=== PATIENT | female | born 1980 | race Caucasian/White ===

== ENCOUNTER 2017-06-30 10:07 | Inpatient (IN) | payer BC ==
[2017-06-30] MEDS ORDERED: Lidocaine 1% 30 ML SDV INJECT PRN (14:38)
[2017-06-30] MEDS ORDERED: Ondansetron 4 MG/2 ML SDV IV PRN (14:38)
[2017-06-30] MEDS ORDERED: Acetaminophen 325 MG Tab PO PRN ×2 (14:38)
[2017-06-30] MEDS ORDERED: Methylergonovine 0.2 MG/1 ML Amp IM PRN (14:38)
[2017-06-30] MEDS ORDERED: Misoprostol 400 MCG (4 X 100 MCG TAB) RECTAL PRN (14:38)
[2017-06-30] MEDS ORDERED: Lactated Ringers 500 ML IV ONE (14:38)
[2017-06-30] MEDS ORDERED: Carboprost Tromethamine 250 MCG/1 ML Amp IM PRN (14:38)
[2017-06-30] MEDS ORDERED: Sodium Chloride 0.9% 10 ML Syringe FLUSH PRN (14:38)
[2017-06-30] MEDS: Misoprostol 25 MCG (1/4 of 100 MCG) Tab VAG PRN ×2 (16:30→20:34)
--- NOTE | 2017-06-30 20:44 | HP ---
CHIEF COMPLAINT: Itching in that began 48 hours ago. HISTORY OF PRESENT ILLNESS: This is a 36-year-old G2, P1-0-0-1, with 37- 5/7 weeks intrauterine confirmed with 20 and 1/7 weeks ultrasound. Forty-eight hours ago, she began itching everywhere on the body, including her abdomen, neck and back. Her hands and feet were the worst, particularly her palms and soles and the itching was worse at night. She does not have a rash. She was diagnosed with influenza A on of last week , 2 days prior to the start of the itching, and was started on Tamiflu. She called the OB floor yesterday and stopped the Tamiflu. She tried Benadryl for the itching and that did not give her any relief. She is feeling movement and denies contractions, leakage of fluid, or vaginal bleeding, right upper quadrant pain, jaundice, or nausea. She denies light stools or dark-colored urine. She has no known exposure to hepatitis. An NST performed today was reactive with baseline heart rate in the 140s with accelerations, with no contractions. PERTINENT LABS: AST 92 and ALT 103, drawn today. Serum bile acid levels pending. HISTORY: One previous spontaneous vaginal delivery per Dr. Garg at [facility] in [place]. The baby weight was 3660 g, and she denies any , intrapartum, or complications with that delivery. She denies any complications with this prior to this incident. PAST MEDICAL HISTORY: None. MEDICATIONS: 1. multivitamins. 2. Stool softener PRN 3. Tums PRN 4. iron sulfate 325 mg ALLERGIES: Sulfa antibiotics causing hives/urticaria. PAST SURGICAL HISTORY: None. FAMILY HISTORY: Mother has asthma. Father has myelofibrosis. Maternal grandmother with heart failure. Maternal grandfather with heart disease. 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 She is to Guero, father of the baby, and he works in [place], [place]. This is their second child together. REVIEW OF SYSTEMS: Pertinent positives and negatives are listed under the HPI. PHYSICAL EXAMINATION: Vital Signs: To be updated and listed in [facility]. General: Pleasant, well-appearing female who appears stated age. HEENT: Atraumatic. Anicteric sclerae. No obvious deformities to external ears. Neck: Supple without adenopathy. No thyromegaly. Heart: Regular rate and rhythm. Lungs: Clear to auscultation bilaterally. Intermittent cough. Abdomen: Gravid, soft, nontender. Neurologic: 2+ patellar reflexes, symmetric. No clonus. Pelvic: Cervical exam; 1.5 cm dilated, 25% effaced, vertex suspected, -2 station. Extremities: Trace edema in the lower extremities bilaterally. No edema in the upper extremities. No erythema or tenderness in any extremities. Skin: Warm and dry. Well perfused. NST done and noted as above Tocometer without contractions TESTING: Blood type O positive, antibody screen negative. Rubella immune. Syphilis negative. Hepatitis B negative. HIV negative. Gonorrhea and chlamydia negative. TSH normal at 0.56. Hepatitis C negative. Wet prep negative for Trichomonas, clue cells, fungal elements, and budding yeast. One- hour glucose tolerance test of 101. GBS negative. ASSESSMENT: 1. 37-5/7 weeks' intrauterine . 2. 2, para 1-0-0-1. 3. Blood type O positive, rubella immune, and group B Streptococcus negative. 4. Suspected intrahepatic cholestasis of . PLAN: Admit the patient to Labor and Delivery floor for induction of labor due to suspected intrahepatic cholestasis of . Awaiting serum bile acid results. Obtain CBC, and place Cytotec x1. Please see orders for further details. We will follow closely. The plan has been discussed with the patient, her questions have been answered, and she is in agreement. The history and physical exam are per Dr. Freire, the assessment and plan are per Dr. Freire, and this note is being transcribed for Dr. Freire. seen and agreed with medical student-YAMILET [facility] /[id number] EARL
[2017-06-30] MEDS ORDERED: hydrOXYzine HCl 25 MG Tab PO PRN (20:45)
[2017-06-30] MEDS ORDERED: Oxytocin/Normal Saline 30 UNIT/500 ML BAG IV SCH (21:00)
[2017-07-01] MEDS: Misoprostol 25 MCG (1/4 of 100 MCG) Tab VAG PRN (00:34)
[2017-07-01] MEDS: Lactated Ringers 1,000 ML IV SCH ×2 (08:00→09:31)
--- NOTE | 2017-07-01 09:13 | PN ---
DATE: 06/30/2017 SUBJECTIVE: No immediate concerns were noted. OBJECTIVE: heart tones in the 150s, felt to be reassuring. Tocometer reveals no obvious contractions. Cytotec has been placed by nurse. ASSESSMENT AND PLAN: 1. Intrauterine at 37 and 5/7 weeks, confirmed with 20 and 1/7 week ultrasound. 2. ICP suspected with intractable itching palm and soles, worse at night over the last 3 days associated with elevated transaminases. I did discuss the case with Dr. Gayle Malagon, FILLING MACHINE TENDER in [place] electronic technologist, who recommended induction of labor with suspicion of ICP based on with her being 37+ weeks and increased risk of stillbirth associated with ICP. 3. Group B Streptococcus negative. 4. G2, P1-0-0-1. PLAN: The patient will be admitted. Cytotec x1 has been placed. Please see Kyung Vernon's MS-III notes for further details. Prior to Cytotec placement, did discuss with them risks, benefits, alternatives, complications of Cytotec as well as potential need for further augmentation. The patient understands and agrees with the above treatment and plan. Cytotec has been placed, and written consent has been obtained as well. For the H and P, records were called for, reviewed, and supplemented by the patient's history, and review of systems was otherwise reviewed and felt to be contributory for what is documented. [facility] /[id number]
--- NOTE | 2017-07-01 09:25 | PN ---
DATE: 07/01/2017 SUBJECTIVE: The patient's itching is better status post her Vistaril. She had a kink in her neck and asking for Tylenol currently. OBJECTIVE: heart tones in the 150s. An acceleration is noted with vaginal exam. Tocometer reveals contractions every 3 to 4 minutes apart currently. Vaginal exam reveals to be 3 cm, 25% effaced, -1 to -2 station, vertex suspected, and Cytotec 25 mcg was placed vaginally, this being her third dose of Cytotec. ASSESSMENT AND PLAN: Intrauterine now at 37-6/7 weeks, confirmed with 20-1/7 weeks' ultrasound, complicated by intrahepatic cholestasis of in a group B Streptococcus negative 2, para 1-0-0-1. She is now status post Cytotec x3. We will continue to follow clinically and closely, reevaluate in 4 hours, and determine further augmentation at that point in time. The patient understands and agrees with the above treatment plan. [facility] /[id number]
[2017-07-01] MEDS ORDERED: fentaNYL 100 MCG/2 ML SDV ONE ×2 (09:29→09:35)
[2017-07-01] MEDS ORDERED: EPINEPHrine 1 MG/ML SDV ONE (09:30)
--- NOTE | 2017-07-01 09:31 | PN ---
DATE: 07/01/2017 SUBJECTIVE: The patient states that the contractions are there, they are getting stronger. OBJECTIVE: heart tones in the 150s range. Acceleration noted with vaginal exam. Tocometer reveals contractions every 1.5 to 3 minutes apart, too often to put in another Cytotec or use Pitocin, and this was the case at 4:30 a.m. as well. Vaginal exam reveals to be 4 cm, 60% effaced, -1 to - 2 station, vertex suspected, and artificial rupture of membranes done after discussion with the patient yielding copious amounts of clear fluid. ASSESSMENT AND PLAN: Intrauterine , now 37 and 6/7 weeks', confirmed with 20 and 1/7 week ultrasound, complicated by ICP in a GBS negative, G2, P1-0- 0-1, status post Cytotec x3, and then artificial rupture membranes as noted above. We will continue to follow clinically and closely. The patient understands and agrees with the above treatment plan. [facility] /[id number]
--- NOTE | 2017-07-01 10:08 | PCM.SN ---
- Free Text/Narrative Note: Intrathecal. Sitting position, sterile prep and drape, 1% lidocaine with bicarb for skin wheal at L3 L4 and L2 L3 interspace, total x3, introducer x 3, 24 ga pencan x5. Pos CSF at L2 L3 interspace. 0.1 ml pf 1:1000 epi, 20 mcg pf sufenta , 30 mcg pf fentanyl and 6 mg of 0.75 % pf bupivacaine injected after CSF aspiration. Pt to L lateral position. Procedure time 0940 to 1010
[2017-07-01] MEDS ORDERED: Benzocaine/Menthol 20%-0.5% Spray 56 GM Canister TOP PRN (10:50)
[2017-07-01] MEDS ORDERED: Sodium Chloride 0.9% 10 ML Syringe FLUSH PRN (10:50)
[2017-07-01] MEDS ORDERED: Oxytocin 10 Units/1 ML SDV IM PRN (10:50)
[2017-07-01] MEDS ORDERED: Simethicone 80 MG Tab.Chew PO PRN (10:50)
[2017-07-01] MEDS ORDERED: Zolpidem 5 MG Tab PO PRN (10:50)
[2017-07-01] MEDS ORDERED: fentaNYL 100 MCG/2 ML SDV ITHECAL ONE (12:04)
--- NOTE | 2017-07-01 13:43 | DEL ---
DATE: 07/01/2017 PREOPERATIVE DIAGNOSES: 1. Intrauterine at 37 and 6/7 weeks, confirmed with 20 and 1/7 week ultrasound. 2. Intrahepatic cholestasis of . 3. Group B Streptococcus negative. 4. G2, P1-0-0-1. 5. The patient is describing left vaginal growth increasing in size over time. POSTOPERATIVE DIAGNOSIS: 1. Intrauterine at 37 and 6/7 weeks, confirmed with 20 and 1/7 week ultrasound-delivered. 2. Intrahepatic cholestasis of . 3. Group B Streptococcus negative. 4. G2, P1-0-0-1. 5. The patient is describing left vaginal growth increasing in size over time. 6. Removal of left vaginal growth that has been increasing in size and sent to pathology with an elliptical-type excision. 7. Second-degree perineal laceration, repaired. 8. Anterior periurethral abrasion, nonbleeding, non-repaired after discussion with the patient. PROCEDURE PERFORMED: Cytotec x2 on 06/30/2017, followed by Cytotec x1 on 07/01/2017, with artificial rupture membranes and then subsequent spontaneous vaginal delivery with second-degree perineal laceration that was repaired, and removal of left vaginal growth and submitted to pathology via elliptical-type excision. NEEDLE POLISHER: JANNETTE BlancoIII. ANESTHESIA/ANALGESIA: The patient did receive an intrathecal in the first stage of labor. ESTIMATED BLOOD LOSS: 200 mL. FINDINGS: 1. Male, scores 9 and 9, weighing 7 pounds 10 ounces (3460 g). 2. Left vaginal growth, whitish in color, approximately a cm in diameter, removed with elliptical excision and submitted to pathology. SUMMARY OF EVENTS: The patient is a 36-year-old, G2, P1-0-0-1, intrauterine at 37 and 5/7 weeks on date of admission on 06/30/2017, diagnosed with intrahepatic cholestasis of with itching without rash for the last few days associated with increased serum aminotransferases as well as bile acids pending. The patient's course was discussed with Dr. Gayle Malagon, and in light of her being term with suspected diagnosis of ICP, a shared decision was made to proceed with induction of labor. She underwent the above procedures, Cytotec x2 on 06/30/2017, one more dose on 07/01/2017, and then subsequently had artificial rupture of membranes. She was requesting intrathecal, was given an intrathecal, and shortly thereafter, went from 4+ cm to the second stage of labor, nearly . Kyung and I were called to the room stat. We donned sterile gown and gloves. Upon our arrival, found vertex to be , and heart tones then subsequently dropped into the bradycardia range. She was asked to push and pushed for less than 30 seconds and subsequently spontaneous vaginal delivery incurred with SUZI presentation, delivery of the vertex, followed by anterior and posterior shoulders as well as rest of the without difficulty. Mouth and nares were suctioned. Cord was doubly clamped and cut, and was resuscitated on mother's abdomen/chest. Then, per patient's request, cord blood was obtained for her collection/storage. This was done via the instructions given with the kit. Thereafter, approximately 5 mL of cord blood was obtained for labs, which seemed to be clotted. Subsequently, placenta was then delivered with gentle cord traction and fundal massage within 15 minute. Perineum, vagina, perirectal areas were then examined and noted to have an anterior periurethral abrasion, nonbleeding, non-repaired after discussion with the patient. A second-degree perineal laceration that was repaired in the usual fashion using 3-0 Vicryl as patient was numb. Subsequently, a left vaginal growth was noted, whitish in color, rounded, approximately a centimeter in diameter, and after discussion with the patient, she requested removal as it was enlarging and was concerning for a neoplasm of undetermined significance. I did discuss with her risks, benefits, alternatives, and complications of this procedure. She verbally agreed and wished to proceed with removal. Subsequently, a scalpel was called for and using an elliptical excision the cyst was removed in its entirety without rupture and submitted to pathology. Bleeding was noted over this area. Silver nitrate sticks were called for, and cautery was unable to be obtained with this, therefore, a figure of 9 stitch was applied with 3-0 Vicryl, and hemostasis reassured. Rectal exam was then subsequently done without any evidence of tears or lacerations to the rectum. Mother and are currently stable at the time of dictation. [facility] /[id number]
--- NOTE | 2017-07-01 13:49 | PN ---
DATE: 07/01/2017 The patient just recently delivered. As part of the delivery process prior to placenta being delivered, [place], cord blood acquisition system was used by myself following the manufacture's instructions and filled the cord blood bag up and sealed off as appropriate. She needs 3 tubes of blood drawn, lab will draw that for us, and then she will call for further instructions from the [place]. [facility] /[id number]
[2017-07-01] MEDS: Ibuprofen 800 MG Tab PO PRN (21:23)
[2017-07-01] MEDS: Docusate Sodium 100 MG Cap PO PRN (21:23)
[2017-07-02] MEDS: Docusate Sodium 100 MG Cap PO PRN ×2 (08:50→22:17)
[2017-07-02] MEDS: Prenatal Multivitamin with Calcium/Folic Acid/Iron Tab PO SCH (08:50)
--- NOTE | 2017-07-02 08:50 | PN ---
DATE: 07/02/2017 SUBJECTIVE: The patient is a 36-year-old, G2, P1-0-0-1 who is day #1, status post normal spontaneous vaginal delivery. No concerns per her or per nursing staff, feels her pain is well controlled on current medications. Her itching has completely resolved. She notes a persistent cough that has been present since last week when she was diagnosed with a flu. She has been wearing a mask when she is around baby as a precaution. She denies fevers or chills, headaches or blurry vision, nausea or vomiting, shortness of breath or chest pain, sharp abdominal pain, foul-smelling discharge, or any swelling or tenderness in any of her extremities. She has not had a bowel movement, but she is passing gas. She reports mild burning with urination and luxo-[id number] lochia. She is ambulating and tolerating a general diet. OBJECTIVE: Vital Signs: Temperature 98.4 degrees Fahrenheit, heart rate 72, blood pressure 106/56, and respiratory rate 16. General: Pleasant well-appearing female. Heart: Regular rate and rhythm. S1 and S2. Lungs: Clear to auscultation bilaterally. Intermittent cough. Abdomen: Soft, nontender, and nondistended. No rebound or guarding. Pelvic: Uterus is firm, palpated one fingerbreadth below the umbilicus. Neurologic: No obvious neurologic deficits. Extremities: Trace edema in the lower extremities bilaterally. No edema in the upper extremities. No erythema or tenderness in any of her extremities. Skin: Warm and dry. No rash. ASSESSMENT: 1. day #1, status post normal spontaneous vaginal delivery. 2. Intrauterine at 37 and 6/7 weeks' gestation, confirmed with 20 and 1/7-week ultrasound, delivered. 3. Intrahepatic cholestasis of . 4. Group B streptococcus negative. 5. G2, P1-0-0-1. 6. Second-degree perineal laceration, repaired. 7. Removal of 1 cm left vaginal growth, sent to pathology. 8. Periurethral abrasion, nonbleeding and nonrepaired. PLAN: Continue routine cares, CBC tomorrow morning. Please see orders for further details. This plan was discussed with the patient, and she is in agreement. We will continue to follow closely and anticipate discharge tomorrow. seen and agreed with med student-YAMILET MODL /[id number] EARL
[2017-07-02] MEDS: Ibuprofen 800 MG Tab PO PRN ×2 (08:51→18:24)
[2017-07-03] MEDS: Prenatal Multivitamin with Calcium/Folic Acid/Iron Tab PO SCH (09:30)
[2017-07-03] MEDS: Docusate Sodium 100 MG Cap PO PRN (09:30)
[2017-07-03] MEDS: Ibuprofen 800 MG Tab PO PRN (09:30)
[2017-07-03] MEDS ORDERED: EPINEPHrine 1 MG/ML SDV ONE (14:09)
--- NOTE | 2017-07-04 05:28 | DISCH ---
ADMIT DIAGNOSES: 1. Intrauterine at 37-5/7 weeks' gestation confirmed with 20-1/7 weeks' ultrasound. 2. Intrahepatic cholestasis of . 3. Group B Streptococcus negative. 4. 2, para 1-0-0-1. DISCHARGE DIAGNOSES: 1. Intrauterine at 37-6/7 weeks' gestation confirmed with 20-1/7 weeks' ultrasound, delivered via spontaneous vaginal delivery. 2. Intrahepatic cholestasis of . 3. Group B Streptococcus negative. 4. 2, para 1-0-0-1. 5. Second-degree perineal laceration, repaired. 6. Removal of 1 cm left vaginal growth. 7. Periurethral abrasion, nonbleeding and nonrepaired. PROCEDURES PERFORMED: NST per Dr. Delgado. Cytotec x3, artificial rupture of membranes, spontaneous vaginal delivery, collection of cord blood via cord blood kit, repair of second-degree perineal laceration, and removal of 1 cm left vaginal growth, all per Dr. Freire. HISTORY OF PRESENT ILLNESS: Please see H and P. SUMMARY OF HOSPITAL COURSE: The patient is a patient of Dr. Garg's seen in the clinic for whole body itching during , particularly worse on her palms and soles that was worse at night and was admitted on the above date with the above diagnoses and underwent induction of labor due to suspected intrahepatic cholestasis of . She underwent an NST that was reactive, received Cytotec x3, artificial rupture of membranes, intrathecal and subsequently soon after, a normal spontaneous vaginal delivery yielding a male with scores of 9 and 9 and weighing 7 pounds 10 ounces, 3460 g with an EBL of 200 mL. day #1 , please see progress note. day #2, date of discharge, the patient was tolerating POs, ambulating, urinating, passing flatus. No bowel movement yet. She feels that her pain is well controlled on current medications. She had a slight headache yesterday, but denies changes in her vision. She also denies fevers or chills, shortness of breath or chest pain, sharp abdominal pains, foul-smelling discharge, nausea or vomiting, or swelling or tenderness in any of her extremities. She does note an intermittent cough that has been present since she was diagnosed with influenza last week. This cough has become deeper, and she feels more congested, but it remains nonproductive. She continues to wear a mask around baby as a precaution. DISCHARGE CONDITION: Good. OBJECTIVE: Vital Signs: 98.4 degrees Fahrenheit, heart rate 64, blood pressure 104/61, and respiratory rate 16. Lungs: Clear to auscultation bilaterally. Intermittent dry cough. Heart: S1 and S2. Regular rate and rhythm. Abdomen: Soft, nontender, and nondistended. No rebound or guarding. Uterus is firm and 3 fingerbreadths below the umbilicus. Extremities: Trace edema to the lower extremities bilaterally. No edema in her upper extremities. No erythema or tenderness in any of her extremities. LABORATORY DATA: Drawn on the date of discharge, white blood cells 9.4, hemoglobin 11.2, and platelet count 190. DISCHARGE INSTRUCTIONS: 1. Diet: As tolerated. 2. Activity: No lifting more than 20 pounds. No sit-ups or straining. Pelvic rest for 6 weeks was discussed with the patient. 3. Reasons to return or go to the emergency room were discussed including temperature greater than 100.4; foul-smelling discharge; red, hot, or tender breasts; or increased pain. DISCHARGE MEDICATIONS: 1. [id number] Tylenol p.r.n. for pain. 2. Iron sulfate 325 mg p.o. once a day. 3. vitamins. It was discussed with the patient in the interim reasons to go to the emergency room in regard to her infant, and follow-up has been scheduled for her in 5 days on Friday, 07/08, and she was instructed to schedule her 6-week visit at that visit. The patient understands and agrees with the above treatment plan. [facility] /[id number] EARL
== END 2017-07-03 15:15 | disposition home or self-care (01) | DRG 560 ==
LOC: DL.OB 10:07 → OBSVTOIN 07-01 10:07
PROVIDERS: ADMIT Family Medicine; ATTEND Family Medicine
PROC: 10E0XZZ Delivery of Products of Conception, External Approach (ICD-10-PCS; principal; 2017-07-01)
PROC: 10907ZC Drainage of Amniotic Fluid, Therapeutic from Products of Conception, Via Natural or Artificial Opening (ICD-10-PCS; 2017-07-01)
PROC: 3E0P7VZ Introduction of Hormone into Female Reproductive, Via Natural or Artificial Opening (ICD-10-PCS; 2017-07-01)
PROC: 0KQM0ZZ Repair Perineum Muscle, Open Approach (ICD-10-PCS; 2017-07-01)
PROC: 00HU33Z Insertion of Infusion Device into Spinal Canal, Percutaneous Approach (ICD-10-PCS; 2017-07-01)
PROC: 0UBG0ZZ Excision of Vagina, Open Approach (ICD-10-PCS; 2017-07-01)
PROC: 6A550ZT Pheresis of Cord Blood Stem Cells, Single (ICD-10-PCS; 2017-07-01)
DX: O26.62 Liver and biliary tract disorders in childbirth (principal); K83.1 Obstruction of bile duct; O70.1 Second degree perineal laceration during delivery; O99.72 Diseases of the skin and subcutaneous tissue complicating childbirth; Z3A.37 37 weeks gestation of pregnancy; Z37.0 Single live birth; Z88.2 Allergy status to sulfonamides; O26.893 Other specified pregnancy related conditions, third trimester; N89.8 Other specified noninflammatory disorders of vagina
CPT/HCPCS: 36415; 59409; 85027; A9270-GY; J0171; J2405; J2590; J3010; J7050; J7120